=== PATIENT | female | born 1935 | race Caucasian/White ===

== ENCOUNTER 2023-07-28 07:26 | Day surgery (SDC) | payer MEDICARE, SELFPAY ==
[2023-07-28] VITALS (7 sets, daily range): BP systolic 104–127; BP diastolic 43–58; BMI 23.9
[2023-07-28 08:21] LABS: Hematocrit 33.8 % (37.0-47.0); Hemoglobin 11.4 g/dL (12.0-16.0); Mean Corp Hgb Conc. 33.7 g/dL (33.0-37.0); Mean Corpuscular Hgb 31.1 pg (27.0-31.0); Mean Corpuscular Volume 92.1 fL (81.0-99.0); Mean Platelet Volume 10.5 fL (7.4-10.4); Platelet Count 197 10^3/uL (130-400); Red Blood Cell Count 3.67 10^6/uL (4.20-5.40); Red Cell Dist. Width 13.2 % (11.5-14.5); White Blood Cell Count 6.4 10^3/uL (4.8-10.8)
[2023-07-28 08:38] LABS: ALT (SGPT) 22 U/L (0-35); AST (SGOT) 29 U/L (14-36); Albumin 4.2 g/dl (3.5-5.0); Alkaline Phosphatase 88 U/L (38-126); Blood Urea Nitrogen 16 mg/dl (7-17); Carbon Dioxide 26 mmol/L (22-30); Chloride 105 mmol/L (98-107); Estimated Creatinine Clearance 49 ml/min; Glucose 103 mg/dl (70-99); Potassium 3.7 mmol/L (3.5-5.1); Sodium 135 mmol/L (135-145); Total Bilirubin 0.8 mg/dl (0.2-1.3); Total Protein 7.3 g/dl (6.3-8.2); eGFR > 60.00
[2023-07-28] MEDS: LOW STRENGTH ASPIRIN 81 MG PO (08:40)
--- NOTE | 2023-07-28 10:38 | ITS.CL.CATH ---
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
Cardiac Catheterization
Procedure Report:
RIGHT AND LEFT HEART CATHETERIZATION
After obtaining informed consent, explaining the risks and the benefits of the procedure, the patient agreed to proceed with a left heart cath/right heart cath procedure.
Date of Procedure: [07/28/2023]
Primary Care Physician: Unknown
Primary General House Worker: Tran Hall
Procedures performed:
1: Coronary angiography
2: Right heart cath
3: Conscious sedation
INDICATION: Severe aortic stenosis
ACCESS: The patient was prepped and draped in usual sterile fashion. Using ultrasound guidance, 6 Solomon Islander sheath was placed in the right brachial vein. A 6 Solomon Islander sheath was placed in the right right radial artery using the Seldinger over the wire
technique.
HEMODYNAMIC FINDINGS (mmHg):
RA(a,v,m): 16/14 with a mean of 13
RV(s/d,EDP): 37/15
PA(s/d/m): 32/19 with a mean of 25
PCWP(a,v,m): 25 mmHg
LV(s/d,EDP): Aortic valve not crossed
Ao(s/d,m): 120/65 with a mean of 86
Oxygen Saturations (mg/dl):
PA: 62.5 on room air
LV: 91 on room air
Cardiac Output/Index (l/min / l/min/m2):
Estimated Katia Method: 3.2 L/min/2.0 L/min/m�
VALVE HEMODYNAMICS:
Patient has known severe aortic stenosis
Coronary Angiography: Using a JL 4.0 catheter, left system was engaged. Left system was imaged in multiple projections. Using a JR4 catheter, right system was engaged. Right system was imaged in multiple projections.
Dominance: Right dominant
Left Main: Normal artery, normal vessel. Mild luminal irregularities present.
Left Anterior Descending: Large vessel. Moderately calcified. There is an 80% lesion in the mid LAD just distally to the bifurcation with a large diagonal. ANSON-3 flow in the vessel. LAD is large and wraps around the apex.
Left Circumflex: Small vessel. Nondominant. Mild luminal regularities present.
Right Coronary: Large vessel. Dominant. Minor luminal irregularities present.
Fluoroscopy Time (min): 7.8 minutes
Radiation Dose (mGy): 247 mGy
DAP (Gy.cm2): 16.0447
Closure device: None. A TR band was applied for hemostasis at the right wrist. The right brachial sheath will be pulled with manual pressure for hemostasis.
Complications: None.
ASSESSMENT:
1: Significant 80% LAD lesion present
2: Known severe aortic stenosis. Moderately reduced cardiac output.
CONCLUSIONS and RECOMMENDATIONS:
1: Patient will need TAVR evaluation including a CT scan and CT surgery evaluation.
2: Patient will be scheduled for elective PCI to the LAD depending on the CT scan result.
Jj Zavaleta MD
--- NOTE | 2023-07-28 10:43 | CONSULT.STRU ---
Addendum entered and electronically signed by WILL Ballard 08/18/23 09:59:
Reviewed patient with the heart team in the [facility] on Thursday08/14/2023. Ms. Sousa did not show up to her consult with Dr. Irby on 08/11 d/t frustration with parking. Rescheduled consult for 08/25. The team was agreeable for Dr. Zavaleta to proceed
with PCI to LAD. PCI scheduled for 08/25/2023. Will review CT scan with the heart team once reconstructions have been completed. Will discuss timing of TAVR after PCI.
Original Note:
Consultation
-
Date/Time Consultation Requested: 07/28/2023 10:00
Date/Time Consultation Performed: 07/28/2023 1115
Requesting Provider: Jj Zavaleta MD
Performing Provider: WILL Ballard
Reason for Consultation: /TAVR
Patient History
Physicians
Family Physician: Palak Crawley MD
Outpatient Visual Merchandising Specialist: Tran Hall MD
Primary Visual Merchandising Specialist: Tran Hall MD
History of Present Illness
Mrs. 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 Patient was recently seen by her primary sprinkler truck driver to discuss echocardiogram findings notable for: EF 60-65%, aortic
valve P/M 73.2/45.4, MOLLY 0.54, Pk sybil: 4.28. DI 0.24, mild- moderate AI, mild MS with a MG 5.0, moderate MR, mild TR, RVSP 34.3. Mrs. Sousa describes DOSHI after walking up a flight of stairs and feels tired throughout the day. It was also noted
during her consult with primary care sprinkler truck driver, patient had a significant unintentional weight loss associated with frequent diarrhea which prompted a recommendation for GI workup. Ms. Sousa states she has not seen a program research specialist yet.
Cardiac catheterization is significant for an 80% LAD lesion. Dr. Zavaleta recommended plan includes: TAVR CT scan, elective PCI and CT surgical consult will be dependent on CT scan findings.
Discussed the pathophysiology and treatment options of aortic stenosis including SAVR and TAVR. Explained the evaluation process comprising of CT scan, CT surgical consult, dental clearance, and a heart team discussion. Informed patient and family
that the CT scan may show some incidental findings that may prompt follow up. Will have patient get a CT scan disc before she leaves for additional follow up. TAVR booklet, contact information, prescriptions, and appointments given to patient.
Allowed for and answered questions at bedside.
Past Medical History
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
Past Surgical History
Past Surgical History: Cholecystectomy, Hysterectomy, Urological (bladder surgery) and Other (PPM ([facility] 09/20/2021))
Dental History
[facility]: Patient states she is UTD (Dental clearance form faxed)
Family History
Mother: at Age (80) and Cause of (CVA)
Father: Cause of (cancer)
Family Medical History: Cancer and Diabetes
Social History
Alcohol: None
Drug: None
Tobacco: Former Smoker
Personal:
Living: With Spouse
Allergies
Allergy/AdvReac Type Severity Reaction Status Date / Time
doxycycline Allergy Unverified 08/26/07 19:55
Tetracyclines Allergy Unverified 08/26/07 19:55
Home Medications
Medication Instructions Recorded Confirmed Type
amlodipine 5 mg tablet 5 mg PO DAILY 07/28/23 07/28/23 History
aspirin 81 mg chewable tablet 81 mg PO DAILY 07/28/23 07/28/23 History
atorvastatin 20 mg tablet 20 mg PO QPM #90 tabs 07/28/23 Rx
famotidine 20 mg tablet 20 mg PO DAILY 07/28/23 07/28/23 History
loratadine 10 mg capsule 10 mg PO DAILY 07/28/23 07/28/23 History
lorazepam 0.5 mg tablet 0.5 mg PO DAILY PRN anxiety 07/28/23 07/28/23 History
propranolol 10 mg tablet 10 mg PO TID 07/28/23 07/28/23 History
STS%
STS %: 7.41
Review of Systems
-
History Source: Patient and Family
General: Reports Weight Loss and Fatigue
HEENT: Reports No Symptoms
Respiratory: Reports DOSHI
Cardiac: Reports No Symptoms
Abdomen/GI: Reports Diarrhea
: Reports No Symptoms
Musculoskeletal: Reports No Symptoms
Skin: Reports No Symptoms
Neurological: Reports No Symptoms
Vascular: Reports No Symptoms
Physical Exam
Vital Signs
Temp 98.5 F 07/28/23 08:26
Temp route: Oral 07/28/23 08:26
Pulse 60 07/28/23 10:22
Resp Rate 14 07/28/23 10:22
Blood pressure 112/45 07/28/23 10:22
Blood pressure extremity used: Left upper arm 07/28/23 10:22
Position: Sitting 07/28/23 10:22
SaO2 98 07/28/23 10:22
Oxygen Mode of Delivery Room air 07/28/23 10:22
Can the patient verbally communicate their pain? Yes 07/28/23 10:22
Actual Weight 57.3 kg 07/28/23 08:11
Body Mass Index (BMI) 23.9 07/28/23 08:11
Labs
07/28/23 08:11
07/28/23 08:11
Diagnostic Studies
Echocardiogram 05/06/2023:
Normal EF
LVEF 60-65%
Normal RV size and systolic function
RVSP 34.3
LA 25.9, RA area 10.5
Mitral valve anterior/posterior leaflet thickening, moderate MAC
Moderate MR
AV is tricuspid, mild-moderate AI, AV P/m: 73.2/45.4, pk sybil: 4.28, MOLLY: 0.54, DI 0.24
Exam
General: No Apparent Distress
HEENT: Normocephalic
Neck: Trachea Midline
Respiratory: Clear
Cardiac: Regular Rhythm and Murmur (III/ MALISSA)
GI: Soft and Non Tender
Rectal: Deferred by Provider
Skin: Warm
Neuro: Awake, Alert, Oriented and AO x 3
Psych: Calm
Assessment / Plan
-
Aortic Stenosis
Continue TAVR evaluation
Trend creatinine (Rx given--[facility])
TAVR CT scan (08/04)
CT surgical consult (TT 08/11)
Frailty testing and KCCQ12 at consult
Continue aspirin
Dental clearance (form faxed)
Heart team discussion
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
Elective PCI
Continue ASA/BB/Statin
Data Reviewed
-
EKG: Tracing Personally Visualized and interpreted (A-sensed, V-paced) and Report Reviewed by me
Supervisor Photostat: Report Reviewed by me and Discussed with Physician
Echo: Report Reviewed by me
Labs: Labs Reviewed by me
Old Records: Reviewed
Total Time Spent with Patient (in minutes): 45
Lab Results
-
Lab Results
WBC 6.4 10^3/uL (4.8-10.8) 07/28/23 08:11
RBC 3.67 10^6/uL (4.20-5.40) L 07/28/23 08:11
Hgb 11.4 g/dL (12.0-16.0) L 07/28/23 08:11
Hct 33.8 % (37.0-47.0) L 07/28/23 08:11
MCV 92.1 fL (81.0-99.0) 07/28/23 08:11
MCH 31.1 pg (27.0-31.0) H 07/28/23 08:11
MCHC 33.7 g/dL (33.0-37.0) 07/28/23 08:11
RDW 13.2 % (11.5-14.5) 07/28/23 08:11
Plt Count 197 10^3/uL (130-400) 07/28/23 08:11
MPV 10.5 fL (7.4-10.4) H 07/28/23 08:11
Sodium 135 mmol/L (135-145) 07/28/23 08:11
Potassium 3.7 mmol/L (3.5-5.1) 07/28/23 08:11
Chloride 105 mmol/L (98-107) 07/28/23 08:11
Carbon Dioxide 26 mmol/L (22-30) 07/28/23 08:11
BUN 16 mg/dl (7-17) 07/28/23 08:11
Creatinine 0.4 mg/dL (0.6-1.0) L 07/28/23 08:11
Estimated Creat Clear 49 ml/min 07/28/23 08:11
eGFR > 60.00 07/28/23 08:11
Glucose 103 mg/dl (70-99) H 07/28/23 08:11
Calcium 9.0 mg/dl (8.4-10.2) 07/28/23 08:11
Total Bilirubin 0.8 mg/dl (0.2-1.3) 07/28/23 08:11
AST 29 U/L (14-36) 07/28/23 08:11
ALT 22 U/L (0-35) 07/28/23 08:11
Alkaline Phosphatase 88 U/L (38-126) 07/28/23 08:11
Total Protein 7.3 g/dl (6.3-8.2) 07/28/23 08:11
Albumin 4.2 g/dl (3.5-5.0) 07/28/23 08:11
Cardiac Catheterization Lab
Angioplasty
Procedure Report:
07/28/2023:
Procedures performed:
1: Coronary angiography
2: Right heart cath
3: Conscious sedation
INDICATION: Severe aortic stenosis
ACCESS:� The patient was prepped and draped in usual sterile fashion.� Using ultrasound guidance, 6 Welsh sheath was placed in the right brachial vein.� A 6 Welsh sheath was placed in the right right radial artery using the Seldinger over the wire
technique.
HEMODYNAMIC FINDINGS (mmHg):
RA(a,v,m): 16/14 with a mean of 13
RV(s/d,EDP): 37/15
PA(s/d/m): 32/19 with a mean of 25
PCWP(a,v,m): 25 mmHg
LV(s/d,EDP): Aortic valve not crossed
Ao(s/d,m): 120/65 with a mean of 86
Oxygen Saturations (mg/dl):
PA: 62.5 on room air
LV: 91 on room air
Cardiac Output/Index (l/min / l/min/m2):
Estimated Katia Method: 3.2 L/min/2.0 L/min/m�
VALVE HEMODYNAMICS:
Patient has known severe aortic stenosis
Coronary Angiography: Using a JL 4.0 catheter, left system was engaged.� Left system was imaged in multiple projections.� Using a JR4 catheter, right system was engaged.� Right system was imaged in multiple projections.
Dominance: Right dominant
Left Main: Normal artery, normal vessel.� Mild luminal irregularities present.
Left Anterior Descending: Large vessel.� Moderately calcified.� There is an 80% lesion in the mid LAD just distally to the bifurcation with a large diagonal.� ANSON-3 flow in the vessel.� LAD is large and wraps around the apex.
Left Circumflex: Small vessel.� Nondominant.� Mild luminal regularities present.
Right Coronary: Large vessel.� Dominant.� Minor luminal irregularities present.
�
Fluoroscopy Time (min): 7.8 minutes
Radiation Dose (mGy): 247 mGy
DAP (Gy.cm2): 16.0447
Closure device: None.� A TR band was applied for hemostasis at the right wrist.� The right brachial sheath will be pulled with manual pressure for hemostasis.
Complications: None.
ASSESSMENT:
1: Significant 80% LAD lesion present
2: Known severe aortic stenosis.� Moderately reduced cardiac output.
CONCLUSIONS and RECOMMENDATIONS:
1: Patient will need TAVR evaluation including a CT scan and CT surgery evaluation.
2: Patient will be scheduled for elective PCI to the LAD depending on the CT scan result.
== END 2023-07-28 13:15 | disposition home or self-care (01) ==
LOC: CATH 07:26
PROVIDERS: ATTENDING PHYSICIAN Internal Medicine Cardiovascular Disease; FAMILY PHYSICIAN Family Medicine
DX: I08.0 Rheumatic disorders of both mitral and aortic valves (principal); I25.10 Atherosclerotic heart disease of native coronary artery without angina pectoris; I25.84 Coronary atherosclerosis due to calcified coronary lesion; R06.09 Other forms of dyspnea; I44.1 Atrioventricular block, second degree; I10 Essential (primary) hypertension; E78.00 Pure hypercholesterolemia, unspecified; Z96.89 Presence of other specified functional implants; Z79.82 Long term (current) use of aspirin
CPT/HCPCS: 80053; 85027; 93005; 93456; 93460; C1894; Q9967

== ENCOUNTER → 2023-08-05 11:41 | Outpatient (REF) | payer MEDICARE, SELFPAY | LOC: RAD 11:41 | PROVIDERS: ATTENDING PHYSICIAN Nurse Practitioner Acute Care; FAMILY PHYSICIAN Family Medicine | DX: I35.0 Nonrheumatic aortic (valve) stenosis (principal) | CPT/HCPCS: 74174; 75572; Q9967 ==

== ENCOUNTER → 2023-08-25 06:21 | Day surgery (SDC) | payer MEDICARE, SELFPAY ==
[2023-08-25 06:50] VITALS: BMI 24.4
[2023-08-25 06:57] VITALS: BP 127/100
[2023-08-25] MEDS: NSS 176 ML IV (07:15)
--- NOTE | 2023-08-25 07:40 | W.PN.UPDATE ---
Update Note
Progress Note Update
Physician was in the holding area to consent the patient. The patient was very apprehensive about having the procedure done. Tells us that she is minimally symptomatic and she is rather not have this done. Patient's family was brought in from the
holding area and we had an extensive discussion about the risks and the benefits of procedure. Patient states that she wants to have her daughter, who is a nurse, present during the procedure. Unfortunately, the patient's daughter is in [place]
and currently is unavailable.
The decision was made along with the family to postpone the procedure until the patient's daughter is available to be bedside. Patient's daughter is a nurse, but will be done in 3 weeks and be able to come to [place] to accompany the patient
to the procedure.
Arrangements were made for follow-up visit at [facility].
The procedure was counseled for this morning. Patient was discharged from [facility] holding.
== END | disposition home or self-care (01) ==
LOC: CATH 06:21
PROVIDERS: ATTENDING PHYSICIAN Internal Medicine Cardiovascular Disease; FAMILY PHYSICIAN Family Medicine
DX: I35.0 Nonrheumatic aortic (valve) stenosis (principal); I10 Essential (primary) hypertension; E78.5 Hyperlipidemia, unspecified; Z53.29 Procedure and treatment not carried out because of patient's decision for other reasons; G25.0 Essential tremor; K21.9 Gastro-esophageal reflux disease without esophagitis; I44.1 Atrioventricular block, second degree